=== PATIENT | female | born 1955 | race African-American/Black ===

== ENCOUNTER 2019-02-19 13:00 | Observation (INO) ==
[2019-02-19 14:29] LABS: Basophils % 0.3 % (0.0-0.8); Eosinophils % 0.1 % (0.00-10.9); Hemoglobin 12.1 GM/DL (12.0-16.0); Immature Granulocytes % 0.4 %; Immature Granulocytes Absolute 0.03 #; Lymphocytes # 1.2 10*3/uL (1.4-4.0); Lymphocytes % 17.5 % (21.3-54.2); Mean Corpuscular HGB Conc 31.8 GM/DL (32-36); Mean Corpuscular Volume 86.4 FL (87-102); Mean Platelet Volume 9.9 FL (9.6-12.0); Monocytes % 7.1 % (1.7-12.7); Neutrophils % 74.6 % (38.7-73.9); Platelet Count 400 T/CUMM (130-400); Red Cell Distribution Width 14.5 % (9.3-17.3); White Blood Count 6.8 T/CUMM (4-12)
[2019-02-19 14:49] LABS: Albumin 3.3 G/DL (3.4-5.0); Bilirubin,Total 0.7 MG/DL (0.2-1.0); Calcium 8.7 MG/DL (8.5-10.1); Osmolality,Calculated 274.7 MOS/KG (273-304); Total Protein 8.6 G/DL (6.4-8.3)
[2019-02-19] MEDS ORDERED: SODIUM CHLORIDE 0.9% 1,000 ML IV STA (15:19)
[2019-02-19] MEDS ORDERED: BISACODYL 5 MG TABLET PO PRN (16:17)
[2019-02-19] MEDS ORDERED: ONDANSETRON 4 MG/2 ML VIAL IV PRN (16:17)
[2019-02-19] MEDS ORDERED: ACETAMINOPHEN 325 MG TABLET PO PRN (16:17)
[2019-02-19] MEDS ORDERED: PROMETHAZINE 25 MG/1 ML VIAL IM PRN (16:17)
[2019-02-19 16:37] LABS: INR 1.1; PT Patient Result 11.4 SECS (9.6-12.2)
[2019-02-19 16:43] LABS: Total Protein 8.6 G/DL (6.4-8.3)
[2019-02-19 18:26] LABS: RBC,Pleural Fluid > 100000 T/CUMM
[2019-02-19] MEDS: LACTULOSE 20 GM/30 ML UDCUP PO SCH ×2 (18:37→21:28)
[2019-02-19] MEDS ORDERED: INFLUENZA VIRUS VACCINE 0.5 ML SYRINGE IM ONE (18:54)
[2019-02-19 19:42] LABS: Eosinophils,Pleural Fluid 1 %; Lymphocytes,Pleural Fluid 55 %; Monocytes,Pleural Fluid 11 %; Neutrophils,Pleural Fluid 33 %
[2019-02-20 05:57] LABS: Basophils % 0.2 % (0.0-0.8); Eosinophils % 0.2 % (0.00-10.9); Hematocrit 29.7 VOL% (35.7-47.0); Hemoglobin 9.5 GM/DL (12.0-16.0); Immature Granulocytes % 0.5 %; Immature Granulocytes Absolute 0.03 #; Lymphocytes # 1.3 10*3/uL (1.4-4.0); Mean Corpuscular Volume 87.4 FL (87-102); Mean Platelet Volume 10.3 FL (9.6-12.0); Neutrophils % 71.1 % (38.7-73.9); Platelet Count 326 T/CUMM (130-400); Red Cell Distribution Width 14.6 % (9.3-17.3); White Blood Count 6.6 T/CUMM (4-12)
[2019-02-20 06:38] LABS: Calcium 7.5 MG/DL (8.5-10.1); Osmolality,Calculated 273.5 MOS/KG (273-304); Risk Ratio 3.3; Thyroid Stimulating Hormone 0.924 uIU/ml (0.358-3.74); VLDL CHOLESTEROL 12.4 MG/DL
[2019-02-20] MEDS ORDERED: POTASSIUM CHLORIDE 20 MEQ TABLET PO ONE (07:29)
[2019-02-20] MEDS ORDERED: PANTOPRAZOLE 40 MG TABLET PO SCH (09:00)
[2019-02-20 10:41] VITALS: BP 104/65
== END 2019-02-20 13:09 | disposition home or self-care (01) ==
LOC: N.EDINP 13:00 → N.ED 13:00 → N.4E 17:02
PROVIDERS: ADMIT Internal Medicine; ATTEND Internal Medicine

== ENCOUNTER 2019-03-20 09:31 | Inpatient (IN) ==
[2019-03-20 10:49] LABS: Basophils % 0.4 % (0.0-0.8); Eosinophils % 0.7 % (0.00-10.9); Hematocrit 53.5 VOL% (35.7-47.0); Hemoglobin 17.2 GM/DL (12.0-16.0); Immature Granulocytes % 0.4 %; Immature Granulocytes Absolute 0.01 #; Lymphocytes # 0.4 10*3/uL (1.4-4.0); Lymphocytes % 12.6 % (21.3-54.2); Mean Corpuscular HGB Conc 32.1 GM/DL (32-36); Mean Corpuscular Volume 80.5 FL (87-102); Mean Platelet Volume 9.2 FL (9.6-12.0); Monocytes % 8.6 % (1.7-12.7); Neutrophils % 77.3 % (38.7-73.9); Platelet Count 247 T/CUMM (130-400); Red Blood Count 6.65 MC/CUMM (3.8-5.5); Red Cell Distribution Width 17.5 % (9.3-17.3); White Blood Count 2.8 T/CUMM (4-12)
[2019-03-20 11:16] LABS: Albumin 2.9 G/DL (3.4-5.0); Bilirubin,Total 0.4 MG/DL (0.2-1.0); Calcium 8.3 MG/DL (8.5-10.1)
[2019-03-20] MEDS ORDERED: ONDANSETRON 4 MG/2 ML VIAL IV PRN (12:36)
[2019-03-20 13:44] LABS: Thyroid Stimulating Hormone 1.39 uIU/ml (0.358-3.74)
[2019-03-20] MEDS: SODIUM CHLORIDE 0.9% 1,000 ML IV SCH (15:20)
[2019-03-20 16:17] LABS: Basophils % 0.3 % (0.0-0.8); Eosinophils % 0.3 % (0.00-10.9); Hematocrit 28.8 VOL% (35.7-47.0); Hemoglobin 8.9 GM/DL (12.0-16.0); Immature Granulocytes % 0.3 %; Immature Granulocytes Absolute 0.02 #; Lymphocytes # 0.9 10*3/uL (1.4-4.0); Lymphocytes % 15.7 % (21.3-54.2); Mean Corpuscular HGB Conc 30.9 GM/DL (32-36); Mean Corpuscular Volume 83.5 FL (87-102); Monocytes % 9.5 % (1.7-12.7); Neutrophils % 73.9 % (38.7-73.9); Platelet Count 498 T/CUMM (130-400); Red Blood Count 3.45 MC/CUMM (3.8-5.5)
[2019-03-20] MEDS: levETIRAcetam 250 MG TABLET PO SCH (21:52)
[2019-03-20] MEDS: DOCUSATE SODIUM 100 MG CAPSULE PO SCH (21:53)
[2019-03-21] MEDS: SODIUM CHLORIDE 0.9% 1,000 ML IV SCH (03:53)
[2019-03-21 04:45] LABS: Basophils % 0.1 % (0.0-0.8); Eosinophils % 0.6 % (0.00-10.9); Hematocrit 26.5 VOL% (35.7-47.0); Hemoglobin 8.2 GM/DL (12.0-16.0); Immature Granulocytes % 0.4 %; Immature Granulocytes Absolute 0.03 #; Lymphocytes # 0.9 10*3/uL (1.4-4.0); Lymphocytes % 13.8 % (21.3-54.2); Mean Corpuscular HGB Conc 30.9 GM/DL (32-36); Mean Corpuscular Volume 83.1 FL (87-102); Monocytes % 10.9 % (1.7-12.7); Neutrophils % 74.2 % (38.7-73.9); Platelet Count 429 T/CUMM (130-400); Red Blood Count 3.19 MC/CUMM (3.8-5.5); Red Cell Distribution Width 15.9 % (9.3-17.3); White Blood Count 6.7 T/CUMM (4-12)
[2019-03-21] MEDS: MULTIVITAMIN (CENTRUM) TABLET PO SCH (08:50)
[2019-03-21] MEDS: MULTIVITAMIN (BEROCCA) TABLET PO SCH (08:50)
[2019-03-21] MEDS: PANTOPRAZOLE 40 MG TABLET PO SCH (08:51)
[2019-03-21] MEDS: DOCUSATE SODIUM 100 MG CAPSULE PO SCH ×2 (08:51→19:59)
[2019-03-21] MEDS: levETIRAcetam 250 MG TABLET PO SCH ×2 (08:53→19:59)
[2019-03-21] MEDS: OSIMERTINIB PO SCH (08:56)
[2019-03-21 11:06] LABS: Lymphocytes,Pleural Fluid 68 %; Monocytes,Pleural Fluid 2 %; Neutrophils,Pleural Fluid 30 %
[2019-03-21 11:08] LABS: RBC,Pleural Fluid > 100000 T/CUMM
[2019-03-21] MEDS ORDERED: ENOXAPARIN 40 MG/0.4 ML SYRINGE SUBCUT SCH (15:00)
[2019-03-22 04:07] LABS: Basophils % 0.1 % (0.0-0.8); Eosinophils % 0.5 % (0.00-10.9); Hemoglobin 8.7 GM/DL (12.0-16.0); Immature Granulocytes % 0.5 %; Immature Granulocytes Absolute 0.04 #; Lymphocytes # 1.1 10*3/uL (1.4-4.0); Lymphocytes % 13.4 % (21.3-54.2); Mean Corpuscular HGB Conc 31.1 GM/DL (32-36); Mean Corpuscular Volume 82.8 FL (87-102); Mean Platelet Volume 9.9 FL (9.6-12.0); Monocytes % 10.2 % (1.7-12.7); Neutrophils % 75.3 % (38.7-73.9); Platelet Count 445 T/CUMM (130-400); Red Blood Count 3.38 MC/CUMM (3.8-5.5); Red Cell Distribution Width 15.8 % (9.3-17.3); White Blood Count 8.2 T/CUMM (4-12)
[2019-03-22 04:22] LABS: Calcium 7.9 MG/DL (8.5-10.1); Osmolality,Calculated 275.4 MOS/KG (273-304)
[2019-03-22 08:43] VITALS: BP 119/74
[2019-03-22] MEDS: MULTIVITAMIN (BEROCCA) TABLET PO SCH (08:53)
[2019-03-22] MEDS: levETIRAcetam 250 MG TABLET PO SCH (08:55)
[2019-03-22] MEDS: MULTIVITAMIN (CENTRUM) TABLET PO SCH (08:56)
[2019-03-22] MEDS: PANTOPRAZOLE 40 MG TABLET PO SCH (08:56)
[2019-03-22] MEDS: DOCUSATE SODIUM 100 MG CAPSULE PO SCH (08:56)
[2019-03-22] MEDS: OSIMERTINIB PO SCH (08:57)
== END 2019-03-22 11:30 | disposition home or self-care (01) | DRG 136 ==
LOC: N.ED 09:31 → SUATTDRO 12:36 → N.EDINP 12:36 → N.4E 15:12
PROVIDERS: ADMIT Internal Medicine Geriatric Medicine; ATTEND Internal Medicine
PROC: IRTHORA (2019-03-21 09:40)

== ENCOUNTER 2019-06-14 16:37 | Inpatient (IN) ==
[2019-06-14] MEDS ORDERED: SODIUM CHLORIDE 0.9% 1,000 ML IV STA (17:30)
[2019-06-14 17:34] LABS: Hematocrit 19.6 VOL% (35.7-47.0); Immature Granulocytes % 5.6 %; Immature Granulocytes Absolute 0.06 #; Lymphocytes # 0.3 10*3/uL (1.4-4.0); Lymphocytes % 27.1 % (21.3-54.2); Mean Corpuscular HGB Conc 29.6 GM/DL (32-36); Mean Corpuscular Volume 89.5 FL (87-102); Mean Platelet Volume 11.2 FL (9.6-12.0); Monocytes % 2.8 % (1.7-12.7); Neutrophils % 64.5 % (38.7-73.9); Red Blood Count 2.19 MC/CUMM (3.8-5.5); Red Cell Distribution Width 17.2 % (9.3-17.3); White Blood Count 1.1 T/CUMM (4-12)
[2019-06-14 17:34] LABS: Blood Urea Nitrogen 14 MG/DL (7-18); Calcium 8.5 MG/DL (8.5-10.1); Estimated Glom Filtration Rate 122 ML/MIN; Glucose 148 MG/DL (74-106); Osmolality,Calculated 269.4 MOS/KG (273-304)
[2019-06-14 17:36] LABS: Amorphous Crystals,Urine Occasional /HPF (Few); Apearance,Urine CLOUDY (Clear); Bacteria,Urine Many /HPF (Few); Bilirubin,Urine Negative (Negative); Blood, Urine Negative (Negative); Glucose,Urine (UA) Negative (Negative); Ketones,Urine Negative (Negative); Mucus,Urine Occasional /LPF (Occasional); Nitrite,Urine Positive (Negative); Protein,Urine Negative; RBC,Urine 2 /HPF (0-4); Squamous Epithelial Cell,Urine Occasional /HPF (0-10); Urine Specific Gravity 1.013 (1.001-1.035); Urine Urobilinogen < 2.0 EU/DL (0.2-1.0); WBC,Urine 12 /HPF (0-6)
[2019-06-14 17:37] LABS: Urine Color Yellow (Yellow)
[2019-06-14 17:40] LABS: Hemoglobin 5.8 GM/DL (12.0-16.0); Platelet Count 9 T/CUMM (130-400)
[2019-06-14] MEDS ORDERED: SODIUM CHLORIDE 0.9% 1,000 ML IV PRN (17:40)
[2019-06-14] MEDS ORDERED: SODIUM CHLORIDE 0.9% 2,150 ML IV ONE (17:46)
[2019-06-14] MEDS ORDERED: cefTRIAXone 1,000 MG in SODIUM CHLORIDE 0.9% 100 ML IV STA (17:47)
[2019-06-14 18:11] LABS: Hypochromasia 2+; Lymphocytes 23 % (20-55); Nucleated Red Blood Cells 1 (0-5); Platelet Estimate Decreased; Segmented Neutrophils 74 % (50-85); Target Cells Few; Total Cells Counted 100
[2019-06-14 18:16] LABS: Albumin 1.9 G/DL (3.4-5.0); Bilirubin,Total 0.6 MG/DL (0.2-1.0); Calcium 8.5 MG/DL (8.5-10.1); Osmolality,Calculated 269.4 MOS/KG (273-304)
[2019-06-14] MEDS ORDERED: MEROPENEM 500 MG in SODIUM CHLORIDE 0.9% 100 ML IV ONE (21:28)
[2019-06-14] MEDS ORDERED: ONDANSETRON 4 MG/2 ML VIAL IV PRN (21:28)
[2019-06-14] MEDS ORDERED: MORPHINE 4 MG/1 ML VIAL IV PRN (21:28)
[2019-06-15 04:51] LABS: Hematocrit 18.5 VOL% (35.7-47.0); Immature Granulocytes % 1.1 %; Immature Granulocytes Absolute 0.01 #; Lymphocytes # 0.3 10*3/uL (1.4-4.0); Lymphocytes % 37.8 % (21.3-54.2); Mean Corpuscular HGB Conc 30.8 GM/DL (32-36); Mean Corpuscular Volume 88.9 FL (87-102); Mean Platelet Volume 9.4 FL (9.6-12.0); Monocytes % 4.4 % (1.7-12.7); Neutrophils % 56.7 % (38.7-73.9); Red Blood Count 2.08 MC/CUMM (3.8-5.5); Red Cell Distribution Width 16.1 % (9.3-17.3)
[2019-06-15 05:02] LABS: Hemoglobin 5.7 GM/DL (12.0-16.0); Platelet Count 31 T/CUMM (130-400); White Blood Count 0.9 T/CUMM (4-12)
[2019-06-15 05:10] LABS: Calcium 8.4 MG/DL (8.5-10.1); Osmolality,Calculated 273.8 MOS/KG (273-304)
[2019-06-15 05:15] LABS: Band Neutrophils 4 % (0-10); Hypochromasia Slight; Lymphocytes 40 % (20-55); Platelet Estimate Decreased; Segmented Neutrophils 51 % (50-85); Total Cells Counted 99
[2019-06-15] MEDS ORDERED: SODIUM CHLORIDE 0.9% 1,000 ML IV PRN ×2 (07:41→10:16)
[2019-06-15 08:20] LABS: Hematocrit 25.9 VOL% (35.7-47.0)
[2019-06-15] MEDS: PANTOPRAZOLE 40 MG TABLET PO SCH (08:50)
[2019-06-15] MEDS: FOLIC ACID 1 MG TABLET PO SCH (08:50)
[2019-06-15] MEDS: levETIRAcetam 250 MG TABLET PO SCH ×2 (08:50→20:19)
[2019-06-15] MEDS: levETIRAcetam 500 MG TABLET PO SCH ×2 (08:50→20:20)
[2019-06-15] MEDS: CIPROFLOXACIN 500 MG TABLET PO SCH ×2 (09:04→20:20)
[2019-06-15] MEDS: FILGRASTIM-SNDZ 480 MCG/0.8 ML SYRINGE SUBCUT SCH (09:04)
[2019-06-15] MEDS: METOPROLOL TARTRATE 25 MG TABLET PO SCH ×2 (16:07→20:20)
[2019-06-15 16:25] LABS: Hematocrit 30.2 VOL% (35.7-47.0); Hemoglobin 9.4 GM/DL (12.0-16.0)
[2019-06-15] MEDS: MYLANTA/LIDO VISC/NYST 180 ML BOTTLE SWISH/SWAL SCH ×2 (16:50→20:22)
[2019-06-16 08:27] LABS: Basophils % 1.2 % (0.0-0.8); Hematocrit 31.4 VOL% (35.7-47.0); Hemoglobin 9.9 GM/DL (12.0-16.0); Immature Granulocytes % 8.5 %; Immature Granulocytes Absolute 0.07 #; Lymphocytes # 0.3 10*3/uL (1.4-4.0); Lymphocytes % 30.5 % (21.3-54.2); Mean Corpuscular HGB Conc 31.5 GM/DL (32-36); Mean Corpuscular Volume 90.8 FL (87-102); Mean Platelet Volume 9.6 FL (9.6-12.0); Monocytes % 6.1 % (1.7-12.7); Neutrophils % 53.7 % (38.7-73.9); Red Blood Count 3.46 MC/CUMM (3.8-5.5); Red Cell Distribution Width 15.5 % (9.3-17.3)
[2019-06-16 08:31] LABS: White Blood Count 0.8 T/CUMM (4-12)
[2019-06-16 08:32] LABS: Platelet Count 11 T/CUMM (130-400)
[2019-06-16] MEDS ORDERED: SODIUM CHLORIDE 0.9% 1,000 ML IV PRN ×2 (08:46→10:51)
[2019-06-16 08:51] LABS: Band Neutrophils 8 % (0-10); Lymphocytes 32 % (20-55); Metamyelocytes 4 %; Segmented Neutrophils 52 % (50-85); Total Cells Counted 100
[2019-06-16 08:52] LABS: Hypochromasia 1+; Microcytosis 1+; Platelet Estimate Decreased
[2019-06-16] MEDS: MYLANTA/LIDO VISC/NYST 180 ML BOTTLE SWISH/SWAL SCH ×3 (09:47→15:55)
[2019-06-16] MEDS: METOPROLOL TARTRATE 25 MG TABLET PO SCH ×2 (09:47→20:46)
[2019-06-16] MEDS: FILGRASTIM-SNDZ 480 MCG/0.8 ML SYRINGE SUBCUT SCH (09:47)
[2019-06-16] MEDS: levETIRAcetam 500 MG TABLET PO SCH ×2 (09:47→20:46)
[2019-06-16] MEDS: PANTOPRAZOLE 40 MG TABLET PO SCH (09:47)
[2019-06-16] MEDS: FOLIC ACID 1 MG TABLET PO SCH (09:47)
[2019-06-16] MEDS: CIPROFLOXACIN 500 MG TABLET PO SCH (09:47)
[2019-06-16] MEDS: levETIRAcetam 250 MG TABLET PO SCH ×2 (09:50→20:46)
[2019-06-16] MEDS: NITROFURANTOIN MACRO/MONO 100 MG CAPSULE PO SCH ×2 (11:30→20:46)
[2019-06-16] MEDS ORDERED: BISACODYL 10 MG SUPP RECTAL ONE (17:23)
[2019-06-16] MEDS ORDERED: BISACODYL 5 MG TABLET PO PRN (17:24)
[2019-06-17] MEDS: MYLANTA/LIDO VISC/NYST 180 ML BOTTLE SWISH/SWAL SCH ×5 (01:04→22:19)
[2019-06-17 05:35] LABS: Basophils % 1.8 % (0.0-0.8); Hematocrit 30.5 VOL% (35.7-47.0); Hemoglobin 9.6 GM/DL (12.0-16.0); Immature Granulocytes Absolute 0.08 #; Lymphocytes # 0.3 10*3/uL (1.4-4.0); Lymphocytes % 43.9 % (21.3-54.2); Mean Corpuscular HGB Conc 31.5 GM/DL (32-36); Neutrophils % 33.3 % (38.7-73.9); Red Blood Count 3.39 MC/CUMM (3.8-5.5); Red Cell Distribution Width 15.6 % (9.3-17.3)
[2019-06-17 05:50] LABS: Calcium 8.3 MG/DL (8.5-10.1); Osmolality,Calculated 276.4 MOS/KG (273-304)
[2019-06-17 06:26] LABS: Platelet Count 7 T/CUMM (130-400); White Blood Count 0.6 T/CUMM (4-12)
[2019-06-17 07:10] LABS: Anisocytosis Slight; Atypical Lymphocytes Few; Band Neutrophils 6 % (0-10); Eosinophils 6 % (0-10); Hypochromasia 2+; Lymphocytes 50 % (20-55); Macrocytosis Slight; Metamyelocytes 6 %; Platelet Estimate Decreased; Segmented Neutrophils 19 % (50-85); Total Cells Counted 100
[2019-06-17] MEDS: POLYETHYLENE GLYCOL POWDER 17 GM PACK PO SCH (08:11)
[2019-06-17] MEDS ORDERED: POTASSIUM CHLORIDE 20 MEQ TABLET PO ONE (08:38)
[2019-06-17] MEDS: FILGRASTIM-SNDZ 480 MCG/0.8 ML SYRINGE SUBCUT SCH (08:55)
[2019-06-17] MEDS: PANTOPRAZOLE 40 MG TABLET PO SCH (08:56)
[2019-06-17] MEDS: FOLIC ACID 1 MG TABLET PO SCH (08:56)
[2019-06-17] MEDS: levETIRAcetam 250 MG TABLET PO SCH ×2 (08:56→22:18)
[2019-06-17] MEDS: levETIRAcetam 500 MG TABLET PO SCH ×2 (08:56→22:18)
[2019-06-17] MEDS: NITROFURANTOIN MACRO/MONO 100 MG CAPSULE PO SCH ×2 (08:56→22:17)
[2019-06-17] MEDS: METOPROLOL TARTRATE 25 MG TABLET PO SCH ×2 (08:59→22:17)
[2019-06-18] MEDS ORDERED: MAGNESIUM SULF RIDER 4 GM in PREMIX 1 EACH IV PRN (07:25)
[2019-06-18] MEDS ORDERED: MAGNESIUM SULF RIDER 2 GM in PREMIX 1 EACH IV PRN (07:25)
[2019-06-18 08:36] LABS: Basophils % 1.1 % (0.0-0.8); Hematocrit 27.1 VOL% (35.7-47.0); Hemoglobin 8.8 GM/DL (12.0-16.0); Immature Granulocytes % 9.7 %; Immature Granulocytes Absolute 0.09 #; Lymphocytes # 0.3 10*3/uL (1.4-4.0); Lymphocytes % 33.3 % (21.3-54.2); Mean Corpuscular HGB Conc 32.5 GM/DL (32-36); Mean Corpuscular Volume 89.4 FL (87-102); Mean Platelet Volume 10.2 FL (9.6-12.0); Monocytes % 9.7 % (1.7-12.7); Neutrophils % 46.2 % (38.7-73.9); Red Blood Count 3.03 MC/CUMM (3.8-5.5); Red Cell Distribution Width 15.8 % (9.3-17.3)
[2019-06-18 08:38] LABS: White Blood Count 0.9 T/CUMM (4-12)
[2019-06-18 08:39] LABS: Platelet Count 18 T/CUMM (130-400)
[2019-06-18 08:54] LABS: Hypochromasia 2+; Lymphocytes 20 % (20-55); Microcytosis Slight; Platelet Estimate Decreased; Segmented Neutrophils 60 % (50-85); Total Cells Counted 100
[2019-06-18 08:59] LABS: Calcium 8.4 MG/DL (8.5-10.1); Osmolality,Calculated 273.5 MOS/KG (273-304)
[2019-06-18] MEDS: METOPROLOL TARTRATE 25 MG TABLET PO SCH ×2 (09:14→20:32)
[2019-06-18] MEDS: FOLIC ACID 1 MG TABLET PO SCH (09:14)
[2019-06-18] MEDS: FILGRASTIM-SNDZ 480 MCG/0.8 ML SYRINGE SUBCUT SCH (09:14)
[2019-06-18] MEDS: NITROFURANTOIN MACRO/MONO 100 MG CAPSULE PO SCH ×2 (09:14→20:32)
[2019-06-18] MEDS: levETIRAcetam 250 MG TABLET PO SCH ×2 (09:14→20:32)
[2019-06-18] MEDS: PANTOPRAZOLE 40 MG TABLET PO SCH (09:14)
[2019-06-18] MEDS: levETIRAcetam 500 MG TABLET PO SCH ×2 (09:14→20:32)
[2019-06-18] MEDS: MYLANTA/LIDO VISC/NYST 180 ML BOTTLE SWISH/SWAL SCH ×4 (09:15→20:33)
[2019-06-18] MEDS: POLYETHYLENE GLYCOL POWDER 17 GM PACK PO SCH (09:18)
[2019-06-18] MEDS ORDERED: SODIUM CHLORIDE 0.9% 1,000 ML IV PRN (09:52)
[2019-06-18] MEDS: ACETAMINOPHEN 325 MG TABLET PO PRN (21:09)
[2019-06-19 05:58] LABS: Basophils % 1.2 % (0.0-0.8); Hematocrit 27.6 VOL% (35.7-47.0); Hemoglobin 8.7 GM/DL (12.0-16.0); Immature Granulocytes % 1.2 %; Immature Granulocytes Absolute 0.02 #; Lymphocytes # 0.3 10*3/uL (1.4-4.0); Mean Corpuscular HGB Conc 31.5 GM/DL (32-36); Mean Corpuscular Volume 90.8 FL (87-102); Mean Platelet Volume 12.2 FL (9.6-12.0); Monocytes % 7.1 % (1.7-12.7); Neutrophils % 70.5 % (38.7-73.9); Red Blood Count 3.04 MC/CUMM (3.8-5.5); Red Cell Distribution Width 15.8 % (9.3-17.3); White Blood Count 1.7 T/CUMM (4-12)
[2019-06-19 06:51] LABS: Platelet Count 27 T/CUMM (130-400)
[2019-06-19 07:11] LABS: Anisocytosis Slight; Band Neutrophils 23 % (0-10); Lymphocytes 20 % (20-55); Macrocytosis Slight; Metamyelocytes 1 %; Nucleated Red Blood Cells 4 (0-5); Platelet Estimate Decreased; Segmented Neutrophils 47 % (50-85); Total Cells Counted 100
[2019-06-19 07:12] LABS: Atypical Lymphocytes Few
[2019-06-19] MEDS: MULTIVITAMIN (BEROCCA) TABLET PO SCH (08:47)
[2019-06-19] MEDS: NITROFURANTOIN MACRO/MONO 100 MG CAPSULE PO SCH ×2 (08:47→20:35)
[2019-06-19] MEDS: CALCIUM (CARBONATE)/VITAMIN D 600 MG-400 UNIT TABLET PO SCH (08:47)
[2019-06-19] MEDS: levETIRAcetam 500 MG TABLET PO SCH ×2 (08:48→20:34)
[2019-06-19] MEDS: levETIRAcetam 250 MG TABLET PO SCH ×2 (08:48→20:34)
[2019-06-19] MEDS: PANTOPRAZOLE 40 MG TABLET PO SCH (08:48)
[2019-06-19] MEDS: FILGRASTIM-SNDZ 480 MCG/0.8 ML SYRINGE SUBCUT SCH (08:48)
[2019-06-19] MEDS: METOPROLOL TARTRATE 25 MG TABLET PO SCH ×2 (08:48→20:35)
[2019-06-19] MEDS: FOLIC ACID 1 MG TABLET PO SCH (08:48)
[2019-06-19] MEDS: MYLANTA/LIDO VISC/NYST 180 ML BOTTLE SWISH/SWAL SCH ×4 (08:52→20:37)
[2019-06-19] MEDS: POLYETHYLENE GLYCOL POWDER 17 GM PACK PO SCH (08:52)
[2019-06-19] MEDS ORDERED: SIMETHICONE CHEW 125 MG TABLET PO PRN (13:54)
[2019-06-19] MEDS: ACETAMINOPHEN 325 MG TABLET PO PRN (17:45)
[2019-06-20 05:19] LABS: Basophils # 0.1 10*3/uL (0.0-0.2); Basophils % 1.1 % (0.0-0.8); Hematocrit 28.8 VOL% (35.7-47.0); Hemoglobin 8.8 GM/DL (12.0-16.0); Immature Granulocytes Absolute 0.56 #; Lymphocytes # 0.5 10*3/uL (1.4-4.0); Mean Corpuscular HGB Conc 30.6 GM/DL (32-36); Mean Corpuscular Volume 92.6 FL (87-102); Mean Platelet Volume 13.4 FL (9.6-12.0); Monocytes % 3.2 % (1.7-12.7); Neutrophils % 77.7 % (38.7-73.9); Red Blood Count 3.11 MC/CUMM (3.8-5.5); Red Cell Distribution Width 15.9 % (9.3-17.3); White Blood Count 5.6 T/CUMM (4-12)
[2019-06-20 05:53] LABS: Platelet Count 14 T/CUMM (130-400)
[2019-06-20 06:08] LABS: Band Neutrophils 7 % (0-10); Hypochromasia 1+; Lymphocytes 11 % (20-55); Metamyelocytes 1 %; Microcytosis Slight; Myelocytes 1 %; Segmented Neutrophils 74 % (50-85); Total Cells Counted 100
[2019-06-20 06:09] LABS: Platelet Estimate Decreased
[2019-06-20] MEDS ORDERED: SODIUM CHLORIDE 0.9% 1,000 ML IV PRN (06:24)
[2019-06-20] MEDS: MYLANTA/LIDO VISC/NYST 180 ML BOTTLE SWISH/SWAL SCH ×4 (09:18→20:08)
[2019-06-20] MEDS: levETIRAcetam 500 MG TABLET PO SCH ×2 (09:19→20:05)
[2019-06-20] MEDS: levETIRAcetam 250 MG TABLET PO SCH ×2 (09:19→20:05)
[2019-06-20] MEDS: FOLIC ACID 1 MG TABLET PO SCH (09:19)
[2019-06-20] MEDS: MULTIVITAMIN (BEROCCA) TABLET PO SCH (09:19)
[2019-06-20] MEDS: FILGRASTIM-SNDZ 480 MCG/0.8 ML SYRINGE SUBCUT SCH (09:19)
[2019-06-20] MEDS: PANTOPRAZOLE 40 MG TABLET PO SCH (09:19)
[2019-06-20] MEDS: CALCIUM (CARBONATE)/VITAMIN D 600 MG-400 UNIT TABLET PO SCH (09:19)
[2019-06-20] MEDS: NITROFURANTOIN MACRO/MONO 100 MG CAPSULE PO SCH ×2 (09:19→20:06)
[2019-06-20] MEDS: POLYETHYLENE GLYCOL POWDER 17 GM PACK PO SCH (09:20)
[2019-06-20] MEDS: METOPROLOL TARTRATE 25 MG TABLET PO SCH ×2 (09:20→20:06)
[2019-06-20] MEDS: ACETAMINOPHEN 325 MG TABLET PO PRN (20:06)
[2019-06-21 06:11] LABS: Hemoglobin 8.9 GM/DL (12.0-16.0); Immature Granulocytes % 6.6 %; Immature Granulocytes Absolute 0.74 #; Lymphocytes # 0.6 10*3/uL (1.4-4.0); Lymphocytes % 5.6 % (21.3-54.2); Mean Corpuscular HGB Conc 31.8 GM/DL (32-36); Mean Corpuscular Volume 90.3 FL (87-102); Monocytes % 3.2 % (1.7-12.7); Neutrophils % 84.6 % (38.7-73.9); White Blood Count 11.2 T/CUMM (4-12)
[2019-06-21 06:19] LABS: Platelet Count 11 T/CUMM (130-400)
[2019-06-21] MEDS ORDERED: SODIUM CHLORIDE 0.9% 1,000 ML IV PRN (06:31)
[2019-06-21 06:44] LABS: Band Neutrophils 4 % (0-10); Hypochromasia 1+; Lymphocytes 2 % (20-55); Metamyelocytes 1 %; Microcytosis 1+; Myelocytes 2 %; Segmented Neutrophils 89 % (50-85); Total Cells Counted 100
[2019-06-21 06:45] LABS: Platelet Estimate Decreased
[2019-06-21] MEDS: MYLANTA/LIDO VISC/NYST 180 ML BOTTLE SWISH/SWAL SCH ×4 (07:30→20:53)
[2019-06-21] MEDS: METOPROLOL TARTRATE 25 MG TABLET PO SCH ×2 (08:00→20:53)
[2019-06-21] MEDS: FILGRASTIM-SNDZ 480 MCG/0.8 ML SYRINGE SUBCUT SCH (08:17)
[2019-06-21] MEDS: PANTOPRAZOLE 40 MG TABLET PO SCH (11:37)
[2019-06-21] MEDS: MULTIVITAMIN (BEROCCA) TABLET PO SCH (11:37)
[2019-06-21] MEDS: levETIRAcetam 250 MG TABLET PO SCH ×2 (11:37→20:51)
[2019-06-21] MEDS: levETIRAcetam 500 MG TABLET PO SCH ×2 (11:37→20:51)
[2019-06-21] MEDS: CALCIUM (CARBONATE)/VITAMIN D 600 MG-400 UNIT TABLET PO SCH (11:37)
[2019-06-21] MEDS: POLYETHYLENE GLYCOL POWDER 17 GM PACK PO SCH (11:37)
[2019-06-21] MEDS: NITROFURANTOIN MACRO/MONO 100 MG CAPSULE PO SCH ×2 (11:37→20:51)
[2019-06-21] MEDS: FOLIC ACID 1 MG TABLET PO SCH (11:37)
[2019-06-21 18:41] LABS: Basophils # 0.1 10*3/uL (0.0-0.2); Basophils % 0.5 % (0.0-0.8); Hematocrit 25.6 VOL% (35.7-47.0); Immature Granulocytes % 6.5 %; Immature Granulocytes Absolute 0.64 #; Lymphocytes # 0.6 10*3/uL (1.4-4.0); Lymphocytes % 6.1 % (21.3-54.2); Mean Corpuscular HGB Conc 31.3 GM/DL (32-36); Mean Corpuscular Volume 91.1 FL (87-102); Mean Platelet Volume 11.2 FL (9.6-12.0); Monocytes % 4.2 % (1.7-12.7); Neutrophils % 82.7 % (38.7-73.9); Platelet Count 40 T/CUMM (130-400); Red Blood Count 2.81 MC/CUMM (3.8-5.5); Red Cell Distribution Width 15.9 % (9.3-17.3); White Blood Count 9.9 T/CUMM (4-12)
[2019-06-21 19:02] LABS: Anisocytosis 1+; Hypochromasia 1+; Lymphocytes 6 % (20-55); Microcytosis 1+; Platelet Estimate Decreased; Segmented Neutrophils 89 % (50-85); Total Cells Counted 100
[2019-06-21] MEDS: ACETAMINOPHEN 325 MG TABLET PO PRN (20:51)
[2019-06-22 04:37] LABS: Basophils # 0.1 10*3/uL (0.0-0.2); Basophils % 0.7 % (0.0-0.8); Hematocrit 27.6 VOL% (35.7-47.0); Hemoglobin 8.5 GM/DL (12.0-16.0); Immature Granulocytes Absolute 0.49 #; Lymphocytes # 0.6 10*3/uL (1.4-4.0); Lymphocytes % 6.3 % (21.3-54.2); Mean Corpuscular HGB Conc 30.8 GM/DL (32-36); Mean Corpuscular Volume 91.7 FL (87-102); Mean Platelet Volume 11.7 FL (9.6-12.0); Monocytes % 6.7 % (1.7-12.7); Neutrophils % 81.3 % (38.7-73.9); Red Blood Count 3.01 MC/CUMM (3.8-5.5); Red Cell Distribution Width 16.1 % (9.3-17.3); White Blood Count 9.7 T/CUMM (4-12)
[2019-06-22 04:38] LABS: Platelet Count 29 T/CUMM (130-400)
[2019-06-22 05:01] LABS: Band Neutrophils 3 % (0-10); Hypochromasia 1+; Lymphocytes 4 % (20-55); Platelet Estimate Decreased; Segmented Neutrophils 88 % (50-85); Total Cells Counted 100
[2019-06-22 05:02] LABS: Microcytosis 1+
[2019-06-22] MEDS: MYLANTA/LIDO VISC/NYST 180 ML BOTTLE SWISH/SWAL SCH (06:45)
[2019-06-22] MEDS ORDERED: SODIUM CHLORIDE 0.9% 500 ML IV ONE (08:51)
[2019-06-22 09:34] LABS: Calcium 8.6 MG/DL (8.5-10.1); Osmolality,Calculated 272.7 MOS/KG (273-304)
[2019-06-22] MEDS: NITROFURANTOIN MACRO/MONO 100 MG CAPSULE PO SCH ×2 (09:46→20:47)
[2019-06-22] MEDS: levETIRAcetam 500 MG TABLET PO SCH ×2 (09:47→20:47)
[2019-06-22] MEDS: FOLIC ACID 1 MG TABLET PO SCH (09:47)
[2019-06-22] MEDS: levETIRAcetam 250 MG TABLET PO SCH ×2 (09:47→20:47)
[2019-06-22] MEDS: MULTIVITAMIN (BEROCCA) TABLET PO SCH (09:47)
[2019-06-22] MEDS: PANTOPRAZOLE 40 MG TABLET PO SCH (09:47)
[2019-06-22] MEDS: METOPROLOL TARTRATE 25 MG TABLET PO SCH ×2 (09:48→09:49)
[2019-06-22] MEDS: CALCIUM (CARBONATE)/VITAMIN D 600 MG-400 UNIT TABLET PO SCH (09:49)
[2019-06-22] MEDS: ACETAMINOPHEN 325 MG TABLET PO PRN ×2 (09:50→17:15)
[2019-06-22] MEDS: POLYETHYLENE GLYCOL POWDER 17 GM PACK PO SCH (09:50)
[2019-06-22] MEDS: FILGRASTIM-SNDZ 480 MCG/0.8 ML SYRINGE SUBCUT SCH (09:52)
[2019-06-22] MEDS: METOPROLOL TARTRATE 50 MG TABLET PO SCH ×2 (10:21→20:47)
[2019-06-22] MEDS ORDERED: POTASSIUM CHLORIDE 20 MEQ TABLET PO ONE (10:29)
[2019-06-22] MEDS ORDERED: SODIUM CHLORIDE 0.9% 1,000 ML IV PRN (11:03)
[2019-06-22 15:06] LABS: Apearance,Urine CLEAR (Clear); Bilirubin,Urine Negative (Negative); Blood, Urine Negative (Negative); Glucose,Urine (UA) Negative (Negative); Ketones,Urine Negative (Negative); Nitrite,Urine Negative (Negative); Protein,Urine 30 MG/DL; RBC,Urine 3 /HPF (0-4); Squamous Epithelial Cell,Urine Occasional /HPF (0-10); Urine Specific Gravity 1.048 (1.001-1.035); Urine Urobilinogen < 2.0 EU/DL (0.2-1.0); WBC,Urine 2 /HPF (0-6)
[2019-06-22 15:09] LABS: Urine Color Dark Yellow (Yellow)
[2019-06-23 04:51] LABS: Basophils # 0.1 10*3/uL (0.0-0.2); Basophils % 0.7 % (0.0-0.8); Hematocrit 27.9 VOL% (35.7-47.0); Hemoglobin 8.4 GM/DL (12.0-16.0); Immature Granulocytes % 5.3 %; Immature Granulocytes Absolute 0.86 #; Lymphocytes # 0.9 10*3/uL (1.4-4.0); Lymphocytes % 5.3 % (21.3-54.2); Mean Corpuscular HGB Conc 30.1 GM/DL (32-36); Mean Platelet Volume 10.2 FL (9.6-12.0); Monocytes % 6.2 % (1.7-12.7); NRBC # 0.02 10*3/uL; Neutrophils % 82.5 % (38.7-73.9); Platelet Count 52 T/CUMM (130-400); Red Cell Distribution Width 16.5 % (9.3-17.3); White Blood Count 16.2 T/CUMM (4-12)
[2019-06-23 06:06] LABS: Band Neutrophils 6 % (0-10); Lymphocytes 6 % (20-55); Metamyelocytes 2 %; Nucleated Red Blood Cells 1 (0-5); Segmented Neutrophils 81 % (50-85); Total Cells Counted 100
[2019-06-23 06:08] LABS: Anisocytosis 1+; Platelet Estimate Decreased; Target Cells Few
[2019-06-23] MEDS: CALCIUM (CARBONATE)/VITAMIN D 600 MG-400 UNIT TABLET PO SCH (08:35)
[2019-06-23] MEDS: PANTOPRAZOLE 40 MG TABLET PO SCH (08:36)
[2019-06-23] MEDS: NITROFURANTOIN MACRO/MONO 100 MG CAPSULE PO SCH (08:36)
[2019-06-23] MEDS: METOPROLOL TARTRATE 50 MG TABLET PO SCH (08:36)
[2019-06-23] MEDS: levETIRAcetam 500 MG TABLET PO SCH (08:36)
[2019-06-23] MEDS: levETIRAcetam 250 MG TABLET PO SCH (08:37)
[2019-06-23] MEDS: FOLIC ACID 1 MG TABLET PO SCH (08:37)
[2019-06-23] MEDS: MULTIVITAMIN (BEROCCA) TABLET PO SCH (08:37)
[2019-06-23] MEDS: POLYETHYLENE GLYCOL POWDER 17 GM PACK PO SCH (08:40)
[2019-06-23] MEDS ORDERED: MAGNESIUM SULF RIDER 2 GM in PREMIX 1 EACH IV ONE (09:43)
[2019-06-23] MEDS: ACETAMINOPHEN 325 MG TABLET PO PRN (11:03)
[2019-06-23 12:38] VITALS: BP 101/69
[2019-06-23] MEDS ORDERED: METOPROLOL TARTRATE 25 MG TABLET PO SCH (13:18)
== END 2019-06-23 15:40 | disposition home or self-care (01) | DRG 809 ==
LOC: N.ED 16:37 → SUATTDRO 18:28 → N.EDINP 18:28 → N.4E 19:27
PROVIDERS: ADMIT Internal Medicine; ATTEND Internal Medicine

== ENCOUNTER 2019-07-15 10:27 | Inpatient (IN) ==
[2019-07-15] MEDS ORDERED: SODIUM CHLORIDE 0.9% 1,000 ML IV STA ×2 (10:58→12:54)
[2019-07-15 11:55] LABS: Basophils # 0.1 10*3/uL (0.0-0.2); Basophils % 0.2 % (0.0-0.8); Hematocrit 29.9 VOL% (35.7-47.0); Hemoglobin 9.2 GM/DL (12.0-16.0); Immature Granulocytes % 3.6 %; Lymphocytes % 2.3 % (21.3-54.2); Mean Corpuscular HGB Conc 30.8 GM/DL (32-36); Mean Corpuscular Volume 98.7 FL (87-102); NRBC # 0.06 10*3/uL; Neutrophils % 88.9 % (38.7-73.9); Platelet Count 434 T/CUMM (130-400); Red Blood Count 3.03 MC/CUMM (3.8-5.5); Red Cell Distribution Width 23.5 % (9.3-17.3)
[2019-07-15 11:59] LABS: White Blood Count 44.7 T/CUMM (4-12)
[2019-07-15 12:11] LABS: Alanine Aminotransferase 13 U/L (13-56); Albumin 1.9 G/DL (3.4-5.0); Alkaline Phosphatase 175 U/L (45-117); Aspartate Amino Transferase 132 U/L (0-37); Blood Urea Nitrogen 30 MG/DL (7-18); Calcium 8.1 MG/DL (8.5-10.1); Estimated Glom Filtration Rate 37 ML/MIN; Glucose 90 MG/DL (74-106); Osmolality,Calculated 256.5 MOS/KG (273-304); Total Protein 8.9 G/DL (6.4-8.3)
[2019-07-15] MEDS ORDERED: LEVOFLOXACIN INJ 750 MG in PREMIX 1 EACH IV STA (12:11)
[2019-07-15 12:22] LABS: Eosinophils 1 % (0-10); Hypochromasia 1+; Lymphocytes 1 % (20-55); Segmented Neutrophils 96 % (50-85); Total Cells Counted 100
[2019-07-15 12:23] LABS: Macrocytosis 1+; Platelet Estimate Increased; Polychromasia Slight
[2019-07-15] MEDS ORDERED: VANCOMYCIN INJ 750 MG in SODIUM CHLORIDE 0.9% 250 ML IV STA ×2 (12:55→15:06)
[2019-07-15 13:05] LABS: Apearance,Urine CLOUDY (Clear); Bilirubin,Urine Negative (Negative); Blood, Urine Negative (Negative); Glucose,Urine (UA) Negative (Negative); Ketones,Urine Negative (Negative); Mucus,Urine Occasional /LPF (Occasional); Nitrite,Urine Negative (Negative); Protein,Urine 100 MG/DL; Squamous Epithelial Cell,Urine Occasional /HPF (0-10); Urine Color Yellow (Yellow); Urine Specific Gravity 1.021 (1.001-1.035); Urine Urobilinogen < 2.0 EU/DL (0.2-1.0)
[2019-07-15] MEDS ORDERED: ZALEPLON 5 MG CAPSULE PO PRN (13:51)
[2019-07-15] MEDS ORDERED: ONDANSETRON 4 MG/2 ML VIAL IV PRN (13:51)
[2019-07-15] MEDS ORDERED: MORPHINE 4 MG/1 ML VIAL IV PRN (13:51)
[2019-07-15] MEDS ORDERED: ALUMINUM/MAGNES/SIMETH MAX STR 30 ML UDCUP PO PRN (13:51)
[2019-07-15] MEDS ORDERED: CALCIUM CARBONATE CHEW 500 MG TABLET PO PRN (13:51)
[2019-07-15] MEDS ORDERED: ACETAMINOPHEN 325 MG TABLET PO PRN (13:51)
[2019-07-15] MEDS ORDERED: LACTULOSE 20 GM/30 ML UDCUP PO PRN (13:51)
[2019-07-15] MEDS ORDERED: PANTOPRAZOLE 40 MG TABLET PO SCH (14:00)
[2019-07-15] MEDS: MEROPENEM 500 MG in SODIUM CHLORIDE 0.9% 100 ML IV SCH ×2 (14:59→22:10)
[2019-07-15] MEDS: levETIRAcetam 500 MG TABLET PO SCH ×2 (14:59→21:48)
[2019-07-15] MEDS: SODIUM CHLORIDE 0.9% 1,000 ML IV SCH ×2 (15:01→22:13)
[2019-07-15] MEDS ORDERED: SODIUM CHLORIDE 0.9% 1,000 ML IV ONE (20:23)
[2019-07-15] MEDS ORDERED: ENOXAPARIN 30 MG/0.3 ML SYRINGE SUBCUT SCH (21:00)
[2019-07-15] MEDS: PHENYLEPHRINE DRIP 40 MG/250 ML PREMIX IV PRN (21:35)
[2019-07-15 22:19] LABS: ABG Base Excess -9.2 MMOL/L (-2.5-2.5); ABG Oxygen Saturation 99.2 % (95-100); ABG PCO2 47.5 MM HG (35-48); ABG TCO2 17.7 MMOL/L (23-27); Allen Test Positive
[2019-07-15 22:20] LABS: ABG PH 7.199 (7.35-7.45)
[2019-07-15] MEDS ORDERED: SODIUM BICARBONATE 50 MEQ/50 ML VIAL IV ONE ×2 (22:26→23:42)
[2019-07-15] MEDS ORDERED: NOREPINEPHRINE 4 MG/4 ML VIAL IV ONE (23:27)
[2019-07-15] MEDS: NOREPINEPHRINE 8 MG in SODIUM CHLORIDE 0.9% 242 ML IV PRN (23:30)
[2019-07-16] MEDS: PHENYLEPHRINE DRIP 40 MG/250 ML PREMIX IV PRN ×2 (01:25→06:01)
[2019-07-16] MEDS ORDERED: VECURONIUM 10 MG VIAL IV ONE (02:34)
[2019-07-16] MEDS ORDERED: ETOMIDATE 20 MG/10 ML VIAL IV ONE ×2 (02:34→02:45)
[2019-07-16] MEDS ORDERED: MIDAZOLAM 2 MG/2 ML VIAL IV ONE (02:53)
[2019-07-16] MEDS ORDERED: MIDAZOLAM 100 MG in SODIUM CHLORIDE 0.9% 80 ML IV PRN (02:53)
[2019-07-16 03:42] LABS: ABG Base Excess -17.9 MMOL/L (-2.5-2.5); ABG HCO3 10.9 MMOL/L (20-26); ABG Oxygen Saturation 99.1 % (95-100); ABG PCO2 39.4 MM HG (35-48); ABG TCO2 11.2 MMOL/L (23-27)
[2019-07-16 03:44] LABS: ABG PH 7.067 (7.35-7.45)
[2019-07-16] MEDS ORDERED: SODIUM BICARBONATE 50 MEQ/50 ML VIAL IV ONE (03:48)
[2019-07-16 04:01] LABS: Basophils # 0.1 10*3/uL (0.0-0.2); Basophils % 0.1 % (0.0-0.8); Hematocrit 27.4 VOL% (35.7-47.0); Hemoglobin 8.1 GM/DL (12.0-16.0); Immature Granulocytes % 6.5 %; Immature Granulocytes Absolute 4.38 #; Lymphocytes # 1.2 10*3/uL (1.4-4.0); Lymphocytes % 1.8 % (21.3-54.2); Mean Corpuscular HGB Conc 29.6 GM/DL (32-36); Mean Corpuscular Volume 105.4 FL (87-102); Mean Platelet Volume 9.6 FL (9.6-12.0); Monocytes % 2.8 % (1.7-12.7); NRBC # 0.27 10*3/uL; Neutrophils % 88.8 % (38.7-73.9); Platelet Count 424 T/CUMM (130-400)
[2019-07-16 04:06] LABS: White Blood Count 67.5 T/CUMM (4-12)
[2019-07-16 04:23] LABS: Lymphocytes 2 % (20-55); Platelet Estimate Adequate; Segmented Neutrophils 91 % (50-85); Total Cells Counted 100
[2019-07-16 04:24] LABS: Macrocytosis Slight; Polychromasia Slight
[2019-07-16 04:25] LABS: Albumin 1.6 G/DL (3.4-5.0); Bilirubin,Total 0.5 MG/DL (0.2-1.0); Calcium 6.7 MG/DL (8.5-10.1); Hypochromasia 1+; Osmolality,Calculated 270.2 MOS/KG (273-304); Total Protein 7.5 G/DL (6.4-8.3); Troponin I 0.034 NG/ML (0.00-0.045)
[2019-07-16] MEDS: DEXTROSE 10% 250 ML BAG IV PRN ×4 (04:28→11:21)
[2019-07-16] MEDS ORDERED: VANCOMYCIN INJ 1,000 MG in SODIUM CHLORIDE 0.9% 250 ML IV PRN (04:52)
[2019-07-16] MEDS ORDERED: VANCOMYCIN INJ 1,250 MG in SODIUM CHLORIDE 0.9% 250 ML IV ONE ×2 (05:00→08:30)
[2019-07-16] MEDS: SODIUM BICARB INJ 50 MEQ in SODIUM CHLORIDE 0.45% 1,000 ML IV SCH ×2 (05:00→12:26)
[2019-07-16] MEDS ORDERED: VANCOMYCIN INJ 2,000 MG in SODIUM CHLORIDE 0.9% 500 ML IV ONE (05:30)
[2019-07-16] MEDS: NOREPINEPHRINE 8 MG in SODIUM CHLORIDE 0.9% 242 ML IV PRN ×3 (05:55→11:38)
[2019-07-16] MEDS: MEROPENEM 500 MG in SODIUM CHLORIDE 0.9% 100 ML IV SCH ×2 (06:32→17:03)
[2019-07-16] MEDS: SODIUM CHLORIDE 0.9% 1,000 ML IV SCH (07:15)
[2019-07-16] MEDS: SODIUM CHLORIDE 0.9% IV PRN ×4 (08:00→14:22)
[2019-07-16] MEDS: PHENYLEPHRINE IV PRN ×4 (08:00→14:22)
[2019-07-16] MEDS ORDERED: PHENYLEPHRINE IV PRN (08:00)
[2019-07-16] MEDS ORDERED: SODIUM CHLORIDE 0.9% IV PRN (08:00)
[2019-07-16] MEDS ORDERED: PANTOPRAZOLE 40 MG VIAL IV SCH (09:00)
[2019-07-16] MEDS ORDERED: FOLIC ACID 1 MG TABLET PO SCH (09:00)
[2019-07-16 09:08] LABS: ABG Base Excess -23.4 MMOL/L (-2.5-2.5); ABG HCO3 7.5 MMOL/L (20-26); ABG Oxygen Saturation 99.2 % (95-100); ABG TCO2 6.3 MMOL/L (23-27)
[2019-07-16 09:12] LABS: ABG PH 7.011 (7.35-7.45)
[2019-07-16] MEDS ORDERED: EPINEPHrine 1 MG/10 ML SYRINGE ONE (14:11)
[2019-07-16 16:13] VITALS: BP 23/13
== END 2019-07-16 14:19 | disposition expired | DRG 862 ==
LOC: EDUNIT# → EDBD → N.ED 10:27 → SUATTDRO 12:39 → N.EDINP 12:39 → N.ICU 12:56
PROVIDERS: ADMIT Internal Medicine; ATTEND Internal Medicine